=== PATIENT | female | born 1955 | race Caucasian/White ===

== ENCOUNTER → 2017-12-14 | Outpatient (CLI) | payer OTHER ==
[~2017-12-14] MED LIST: 24 HOUR ALLERG9.9 ML INH; ATEN25 PO; FAMO40 PO; IRON160 M1 PO; PROZAC20 MG PO; Prinivil10 MG PO; ZYRTEC10 M1
[2017-12-14 10:35] LABS: Creatinine Urine 85.5 mg/dL (27.00-270.00); Protein, Urine Quantitative 12.5 mg/dL (0.0-11.9)
[2017-12-14 10:38] LABS: Microalbumin, Urine Quant. 22.4 mg/L (0.000-20.000)
== END | disposition home or self-care (01) ==
LOC: LAB SHORT 08:30 → LAB 08:30 → LAB FUT 12-05 13:10
PROVIDERS: Internal Medicine Nephrology
DX: N18.4 Chronic kidney disease, stage 4 (severe) (principal); D75.1 Secondary polycythemia; N25.81 Secondary hyperparathyroidism of renal origin; E55.9 Vitamin D deficiency, unspecified; E78.00 Pure hypercholesterolemia, unspecified; R76.9 Abnormal immunological finding in serum, unspecified; R94.5 Abnormal results of liver function studies; R94.6 Abnormal results of thyroid function studies; G60.9 Hereditary and idiopathic neuropathy, unspecified; D51.8 Other vitamin B12 deficiency anemias; D52.8 Other folate deficiency anemias; D50.9 Iron deficiency anemia, unspecified
CPT/HCPCS: 81050; 82043; 82570; 84156

== ENCOUNTER → 2018-04-09 | Outpatient (CLI) | payer OTHER ==
[2018-04-09 15:33] LABS: Albumin/Globulin Ratio 1.1 (0.8-1.8); Bilirubin, Total 0.3 mg/dL (0.1-1.0); Bun/Creatinine Ratio 17.2 (12.0-20.0); Calcium, Blood 9.4 mg/dL (8.5-10.1); Creatinine, Blood 2.09 mg/dL (0.40-1.00); Globulin, Blood 3.5 g/dL (2.2-4.0); Potassium, Blood 5.2 mmol/L (3.5-5.5); Total Protein, Blood 7.5 g/dL (6.4-8.2)
== END | disposition home or self-care (01) ==
LOC: LAB SHORT 14:02 → LAB 14:02
PROVIDERS: Internal Medicine Hematology & Oncology
DX: D50.9 Iron deficiency anemia, unspecified (principal)
CPT/HCPCS: 80053

== ENCOUNTER 2018-05-20 07:57 | Day surgery (SDC) | payer OTHER ==
[~2018-05-20] VITALS: Ht 170.2 cm; Wt 99.8 kg
[~2018-05-20 07:57] MED LIST changes: -ATEN25 PO; -PROZAC20 MG PO; -Prinivil10 MG PO
--- NOTE | 2018-05-20 08:06 | NUR ---
History, Chart, Medications and Allergies reviewed before start of procedure. Patient confirms NPO status and agrees with scheduled EGD. Patient States Post-Procedure ride home has been arranged.
--- NOTE | 2018-05-20 08:19 | NUR ---
PT HR 130-160'S, DR GALDAMEZ AWARE AND EKG ORDERED.PT STATES NO CHEST PAIN AT THIS TIME BUT NOTICED LAST NIGHT SHE WAS GETTING A SORE SCRATCHY THROAT WITH CHEST DISCOMFORT. ALSO STATES SHE HAS HIGH BLOOD PRESSURE. TOOK BP MEDICATION YESTERDAY DIRECTED.
[2018-05-20 08:49] LABS: BASOPHILS ABSOLUTE AUTO 0.03 K/mm3 (0.00-0.23); BASOPHILS PERCENT AUTO 1 % (0-2); EOSINOPHILS ABSOLUTE AUTO 0.27 K/mm3 (0.00-0.68); EOSINOPHILS PERCENT AUTO 4 % (0-6); Hematocrit 39.8 % (33.0-51.0); Hemoglobin 12.8 g/dL (11.5-16.0); IMMATURE GRAN ABSOLUTE AUTO 0.01 K/mm3 (0.00-0.10); IMMATURE GRAN PERCENT AUTO 0 % (0-1); LYMPHOCYTES ABSOLUTE AUTO 1.57 K/mm3 (0.84-5.20); LYMPHOCYTES PERCENT AUTO 26 % (21-46); MONOCYTES ABSOLUTE AUTO 0.52 K/mm3 (0.16-1.47); MONOCYTES PERCENT AUTO 9 % (4-13); Mean Corpuscular HGB 29.3 pg (26.0-34.0); Mean Corpuscular HGB Conc 32.2 g/dL (31.5-36.5); Mean Corpuscular Volume 91 fL (80-100); NEUTROPHILS PERCENT AUTO 61 % (41-73); Platelet Count 177 K/mm3 (150-400); RDW Coefficient Variation 14.3 % (11.7-14.2); Red Blood Cell Count 4.37 M/mm3 (3.80-5.20)
--- NOTE | 2018-05-20 09:00 | NUR ---
PER DR GALDAMEZ, PT TO REPORT TO THE ER. PT ESCORTED TO ER VIA W/C. DR GALDAMEZ AWARE PT WAS ESCORTED TO ER WAITING ROOM.
[2018-05-20 09:13] LABS: Alanine Aminotransfer (ALT/SGP 22 U/L (12-78); Albumin, Blood 3.6 g/dL (3.4-5.0); Albumin/Globulin Ratio 0.9 (0.8-1.8); Alk Phos 82 U/L (50-136); Anion Gap 8 mmol/L (6-16); Aspartate Aminotrans (AST/SGOT 18 U/L (12-37); Bilirubin, Total 0.5 mg/dL (0.1-1.0); Blood Urea Nitrogen 34 mg/dL (8-24); Bun/Creatinine Ratio 20.4 (12.0-20.0); CO2, Blood 23 mmol/L (21-32); Calcium, Blood 9.1 mg/dL (8.5-10.1); Chloride, Blood 112 mmol/L (98-108); Creatinine, Blood 1.67 mg/dL (0.40-1.00); Glomerular Filtration Rate 33 (60-); Glucose, Blood 94 mg/dL (70-99); Potassium, Blood 4.6 mmol/L (3.5-5.5); Sodium, Blood 143 mmol/L (136-145); Total Protein, Blood 7.6 g/dL (6.4-8.2); Troponin I <0.015 ng/mL (0.000-0.040)
[2018-05-20] MEDS ORDERED: **incomplete med rec (12:09)
[2018-05-20] MEDS ORDERED: [UNRECOGNIZED DRUG - CODE] PO (12:51)
[2018-05-20] MEDS ORDERED: Omeprazole20 M1 PO (12:52)
[2018-05-20] MEDS ORDERED: PROZAC20 MG PO (14:12)
[2018-05-20] MEDS ORDERED: Prinivil10 MG PO (14:17)
[2018-05-20] MEDS ORDERED: ATEN25 PO (14:18)
[2018-05-20] MEDS ORDERED: CHOL10002 PO (14:20)
[2018-05-21] MEDS ORDERED: Lopressor 25 mg25 MG PO (16:34)
[2018-05-21] MEDS ORDERED: ZYRTEC10 M2 PO (16:35)
[2018-05-21] MEDS ORDERED: FERROUS SULFATE PO (16:37)
[2018-05-21] MEDS ORDERED: Flonase 0.05% N16 GM (16:40)
[2018-05-21] MEDS ORDERED: ADULT ASPIRIN81 MG PO (16:44)
== END 2018-05-20 12:00 | disposition home or self-care (01) ==
LOC: ORSCMMR 07:57 → ORD 09:00 → ORSCMMR 12:00
PROVIDERS: Internal Medicine Gastroenterology
DX: K25.0 Acute gastric ulcer with hemorrhage (principal); Z53.9 Procedure and treatment not carried out, unspecified reason
CPT/HCPCS: 80053; 83880; 84484; 85025; 85379; 93005; 93010; J7120

== ENCOUNTER 2018-05-20 08:49 | Observation (INO) | payer OTHER ==
[~2018-05-20] VITALS: Ht 170.2 cm; Wt 99.8 kg
[2018-05-20] MEDS ORDERED: **incomplete med rec (12:09)
[2018-05-20] MEDS ORDERED: [UNRECOGNIZED DRUG - CODE] PO (12:51)
[2018-05-20] MEDS ORDERED: Omeprazole20 M1 PO (12:52)
[2018-05-20] MEDS ORDERED: PROZAC20 MG PO (14:12)
[2018-05-20] MEDS ORDERED: Prinivil10 MG PO (14:17)
[2018-05-20] MEDS ORDERED: ATEN25 PO (14:18)
[2018-05-20] MEDS ORDERED: CHOL10002 PO (14:20)
[2018-05-20 16:41] LABS: CPK Creatine Kinase 68 U/L (26-193); Creatine Kinase MB 1.3 ng/mL (0.0-3.6); Creatine Kinase MB Index 1.9 (0.0-4.0); Free Thyroxine 0.76 ng/dL (0.70-1.60); Magnesium, Blood 1.9 mg/dL (1.6-2.4); Troponin I <0.015 ng/mL (0.000-0.040)
[2018-05-20 16:45] LABS: Phosphorus, Blood 2.6 mg/dL (2.5-4.9); Triiodothyronine, Free 2.19 pg/mL (2.18-3.98)
[2018-05-21 01:07] LABS: BASOPHILS ABSOLUTE AUTO 0.03 K/mm3 (0.00-0.23); BASOPHILS PERCENT AUTO 0 % (0-2); EOSINOPHILS ABSOLUTE AUTO 0.22 K/mm3 (0.00-0.68); EOSINOPHILS PERCENT AUTO 3 % (0-6); Hematocrit 37.1 % (33.0-51.0); Hemoglobin 11.8 g/dL (11.5-16.0); IMMATURE GRAN ABSOLUTE AUTO 0.03 K/mm3 (0.00-0.10); IMMATURE GRAN PERCENT AUTO 0 % (0-1); LYMPHOCYTES ABSOLUTE AUTO 1.79 K/mm3 (0.84-5.20); LYMPHOCYTES PERCENT AUTO 24 % (21-46); MONOCYTES ABSOLUTE AUTO 0.59 K/mm3 (0.16-1.47); MONOCYTES PERCENT AUTO 8 % (4-13); Mean Corpuscular HGB 29.7 pg (26.0-34.0); Mean Corpuscular HGB Conc 31.8 g/dL (31.5-36.5); Mean Platelet Volume 10.3 fL (9.1-12.4); NEUTROPHILS ABSOLUTE AUTO 4.78 K/mm3 (1.96-9.15); NEUTROPHILS PERCENT AUTO 64 % (41-73); Platelet Count 163 K/mm3 (150-400); RDW Coefficient Variation 14.5 % (11.7-14.2); RDW Standard Deviation 50.4 fL (35.1-46.3); Red Blood Cell Count 3.97 M/mm3 (3.80-5.20); White Blood Cell Count 7.44 K/mm3 (4.00-11.30)
[2018-05-21 01:13] LABS: Mean Corpuscular Volume 94 fL (80-100)
[2018-05-21 01:23] LABS: Bun/Creatinine Ratio 21.1 (12.0-20.0); Calcium, Blood 9.2 mg/dL (8.5-10.1); Creatinine, Blood 1.8 mg/dL (0.40-1.00); Potassium, Blood 4.4 mmol/L (3.5-5.5)
[2018-05-21 01:27] LABS: CPK Creatine Kinase 66 U/L (26-193); Creatine Kinase MB 1.4 ng/mL (0.0-3.6); Creatine Kinase MB Index 2.1 (0.0-4.0); Troponin I <0.015 ng/mL (0.000-0.040)
--- NOTE | 2018-05-21 05:19 | NUR ---
SHIFT SUMMARY PT ER ADMIT THIS SHIFT FOR AFIB RVR. PT HAS DONE WELL OVERNIGHT AND SLEPT FOR MOST OF THE SHIFT. SHE DENIES CHEST PAIN. MEDICATED X1 FOR HEADACHE WITH AFFECT. PT HAS BEEN INDEPENDENT AND AMBULATORY IN THE ROOM. AFIB UPON ADMISSION. PT CONVERTED TO SINUS RHYTHM RATE OF 57, AT 2330. THERE WAS A 3.7 SECOND PAUSE BEFORE SHE CONVERTED PER Mimvi. PT HAS REMAINED IN SINUS RHYHMN FOR THE REMAINDER OF SHIFT. WITH NO ACUTE CHANGES. IVF INFUSING ORDERED. WILL CONTINUE TO MONITOR AND REPORT TO ONCOMING RN.
--- NOTE | 2018-05-21 08:00 | NUR ---
PT PLEASANT COOP A/O DENIES PAIN. H/R REG, NO MURMER NOTED. PT CONVERTED LAST KVNG AT 1130 PM. PER TELE: NSR AT 73. LUNGS CLEAR, RESP EASY, UNLABORED. ON R.A. BT X4 LAST BM YEST. VOIDS PER BATHROOM. INDEPENDANT TO ROOM. BED IN LOW POSITION, CALL LITE IN REACH, CALLS APPROP
--- NOTE | 2018-05-21 09:09 | NUR ---
ECHOCARDIOGRAM COMPLETED
--- NOTE | 2018-05-21 11:30 | NUR ---
Advance Directive education conducted. I introduced myself and stated the purpose of my visit as I entered patient's room. Patient said that she was interested in the education and so I proceeded to tell her about the importance and the process of the advance directive. I explained, with the booklet in hand, about prupose of the different sections. Patient thanked me for the information and said that she would follow up with the advance directive when she felt better.
[2018-05-21] MEDS ORDERED: Lopressor 25 mg25 MG PO (16:34)
[2018-05-21] MEDS ORDERED: ZYRTEC10 M2 PO (16:35)
[2018-05-21] MEDS ORDERED: FERROUS SULFATE PO (16:37)
[2018-05-21] MEDS ORDERED: Flonase 0.05% N16 GM (16:40)
[2018-05-21] MEDS ORDERED: ADULT ASPIRIN81 MG PO (16:44)
== END 2018-05-21 17:14 | disposition home or self-care (01) ==
LOC: ER 08:49 → ERHOLD 08:50 → PCU 08:50 → ER 12:43 → ERHOLD 12:43 → PCU 19:55 → ERHOLD 19:55 → PCU 05-21 17:14
PROVIDERS: ADMIT Internal Medicine
DX: I48.91 Unspecified atrial fibrillation (principal); I12.9 Hypertensive chronic kidney disease with stage 1 through stage 4 chronic kidney disease, or unspecified chronic kidney disease; N18.4 Chronic kidney disease, stage 4 (severe); G47.33 Obstructive sleep apnea (adult) (pediatric); K21.9 Gastro-esophageal reflux disease without esophagitis; K22.10 Ulcer of esophagus without bleeding; D50.9 Iron deficiency anemia, unspecified; R73.03 Prediabetes; E78.00 Pure hypercholesterolemia, unspecified; Z79.899 Other long term (current) drug therapy; Z79.82 Long term (current) use of aspirin
CPT/HCPCS: 36415; 80048; 82550; 82553; 83735; 84100; 84439; 84443; 84481; 84484; 85025; 93306; 94762; 96361; 96374; 99285-25; J1650; J7030

== ENCOUNTER 2018-06-03 23:53 | Emergency (ER) | payer OTHER ==
[~2018-06-03] VITALS: Ht 170.2 cm; Wt 99.8 kg
[~2018-06-03 23:53] MED LIST changes: +**incomplete med rec; +ADULT ASPIRIN81 MG PO; +ATEN25 PO; +CHOL10002 PO; +FERROUS SULFATE PO; +Flonase 0.05% N16 GM; +Lopressor 25 mg25 MG PO; +Omeprazole20 M1 PO; +PROZAC20 MG PO; +Prinivil10 MG PO; +ZYRTEC10 M2 PO; +[UNRECOGNIZED DRUG - CODE] PO
[2018-06-04 00:32] LABS: BASOPHILS ABSOLUTE AUTO 0.03 K/mm3 (0.00-0.23); BASOPHILS PERCENT AUTO 1 % (0-2); EOSINOPHILS ABSOLUTE AUTO 0.32 K/mm3 (0.00-0.68); EOSINOPHILS PERCENT AUTO 5 % (0-6); Hematocrit 38.7 % (33.0-51.0); Hemoglobin 12.3 g/dL (11.5-16.0); IMMATURE GRAN ABSOLUTE AUTO 0.03 K/mm3 (0.00-0.10); IMMATURE GRAN PERCENT AUTO 1 % (0-1); LYMPHOCYTES ABSOLUTE AUTO 1.91 K/mm3 (0.84-5.20); LYMPHOCYTES PERCENT AUTO 32 % (21-46); MONOCYTES ABSOLUTE AUTO 0.44 K/mm3 (0.16-1.47); MONOCYTES PERCENT AUTO 7 % (4-13); Mean Corpuscular HGB 29.7 pg (26.0-34.0); Mean Corpuscular HGB Conc 31.8 g/dL (31.5-36.5); Mean Corpuscular Volume 94 fL (80-100); Mean Platelet Volume 10.3 fL (9.1-12.4); NEUTROPHILS ABSOLUTE AUTO 3.29 K/mm3 (1.96-9.15); NEUTROPHILS PERCENT AUTO 55 % (41-73); Platelet Count 220 K/mm3 (150-400); RDW Coefficient Variation 14.2 % (11.7-14.2); RDW Standard Deviation 48.2 fL (35.1-46.3); Red Blood Cell Count 4.14 M/mm3 (3.80-5.20); White Blood Cell Count 6.02 K/mm3 (4.00-11.30)
[2018-06-04 01:02] LABS: Alanine Aminotransfer (ALT/SGP 24 U/L (12-78); Albumin, Blood 3.7 g/dL (3.4-5.0); Albumin/Globulin Ratio 0.9 (0.8-1.8); Alk Phos 73 U/L (50-136); Anion Gap 6 mmol/L (6-16); Aspartate Aminotrans (AST/SGOT 12 U/L (12-37); Bilirubin, Total 0.3 mg/dL (0.1-1.0); Blood Urea Nitrogen 34 mg/dL (8-24); CO2, Blood 25 mmol/L (21-32); Calcium, Blood 9.4 mg/dL (8.5-10.1); Chloride, Blood 111 mmol/L (98-108); Creatinine, Blood 1.62 mg/dL (0.40-1.00); Globulin, Blood 3.9 g/dL (2.2-4.0); Glomerular Filtration Rate 34 (60-); Glucose, Blood 91 mg/dL (70-99); Potassium, Blood 4.5 mmol/L (3.5-5.5); Sodium, Blood 142 mmol/L (136-145); Total Protein, Blood 7.6 g/dL (6.4-8.2); Troponin I <0.015 ng/mL (0.000-0.040)
== END 2018-06-04 03:43 | disposition home or self-care (01) ==
LOC: ER 23:53
PROVIDERS: Emergency Medicine
DX: I48.91 Unspecified atrial fibrillation (principal); Z79.899 Other long term (current) drug therapy; Z79.82 Long term (current) use of aspirin; I10 Essential (primary) hypertension; E03.9 Hypothyroidism, unspecified
CPT/HCPCS: 36415; 71046; 80053; 83735; 83880; 84484; 85025; 93005; 93010; 96374; 99285-25; J7030

== ENCOUNTER → 2018-08-17 | Outpatient (CLI) | payer OTHER | END | disposition home or self-care (01) | LOC: LAB EV 19:18 → LAB SHORT 19:18 | DX: N39.0 Urinary tract infection, site not specified (principal) | CPT/HCPCS: 87077; 87086; 87186 ==

== ENCOUNTER → 2018-08-22 | Outpatient (CLI) | payer OTHER ==
[~2018-08-22] MED LIST changes: +CALC.25 PO; +CEFU500T30 PO; -CHOL10002 PO; +FERRO-TIME325 MG PO; -FERROUS SULFATE PO; -Lopressor 25 mg25 MG PO; +Toprol Xl25 MG PO; +VITAMIN D32000 UNI1 PO; +WARF5 PO
== END | disposition home or self-care (01) ==
LOC: LAB SHORT 12:27 → LAB EV 12:27
DX: N39.0 Urinary tract infection, site not specified (principal)
CPT/HCPCS: 87086

== ENCOUNTER 2018-09-01 08:20 | Day surgery (SDC) | payer OTHER ==
[~2018-09-01] VITALS: Ht 170.2 cm; Wt 99.7 kg
[~2018-09-01 08:20] MED LIST changes: -CALC.25 PO; -CEFU500T30 PO; -WARF5 PO
--- NOTE | 2018-09-01 09:10 | NUR ---
Ambulatory in Day Surgery. History, Chart, Medications and Allergies reviewed before start of procedure. Lungs clear T/O to Auscultation. Patient confirms NPO status and agrees with scheduled surgery. Pre-Op teaching done. Pt verbalizes understanding. Patient States Post-Procedure ride home has been arranged.
--- NOTE | 2018-09-01 09:23 | NUR ---
09/01/18 0923 Eugenia Rhodes History, Chart, Medications and Allergies reviewed before start of procedure. PATIENT CONFIRMS NPO STATUS AND AGREES WITH SCHEDULED PROCEDURE. MONITOR INTACT WITH CONTINUOUS PULSE OXIMETRY AND INTERMITTENT BP. O2 VIA N/C INTACT THROUGHOUT SEDATION/PROCEDURE. 3-LEAD EKG REVIEWED WITH PHYSICIAN PRIOR TO START OF PROCEDURE. WILL USER MODERATE SDATIOSNDO TO SLEEP APNEA.
--- NOTE | 2018-09-01 09:59 | NUR ---
INTO STEP S/P EGD. PT A&OX3. DENIES PAIN OR NAUSEA. HR 50'S.SATS>90% ON RA. LANRE INITIATED.
--- NOTE | 2018-09-01 10:26 | NUR ---
DISCHARGED WITH ALL BELONGINGS AND DISCHARGE INSTRUCITONS ESCORTED OUT IN WC BY RN
== END 2018-09-01 22:53 | disposition home or self-care (01) ==
LOC: ORSCMMR 08:20 → ORD 09:30 → ORSCMMR 22:53
PROVIDERS: Internal Medicine Gastroenterology
PROC: 0DB48ZX Excision of Esophagogastric Junction, Via Natural or Artificial Opening Endoscopic, Diagnostic (ICD-10-PCS; principal; 2018-09-01 09:30)
DX: Z87.11 Personal history of peptic ulcer disease (principal); I48.91 Unspecified atrial fibrillation; D64.9 Anemia, unspecified; I10 Essential (primary) hypertension; E78.00 Pure hypercholesterolemia, unspecified; R73.03 Prediabetes; K21.9 Gastro-esophageal reflux disease without esophagitis; G47.33 Obstructive sleep apnea (adult) (pediatric); E66.01 Morbid (severe) obesity due to excess calories; Z68.34 Body mass index [BMI] 34.0-34.9, adult; Z79.899 Other long term (current) drug therapy
CPT/HCPCS: 88305; J2250; J3010; J7120

== ENCOUNTER 2018-10-13 12:49 | Observation (INO) | payer OTHER ==
[~2018-10-13] VITALS: Ht 170.2 cm; Wt 99.1 kg
[2018-10-13] MEDS ORDERED: WARF5 PO (13:32)
[2018-10-13 13:44] LABS: BASOPHILS ABSOLUTE AUTO 0.03 K/mm3 (0.00-0.23); BASOPHILS PERCENT AUTO 1 % (0-2); EOSINOPHILS ABSOLUTE AUTO 0.17 K/mm3 (0.00-0.68); EOSINOPHILS PERCENT AUTO 3 % (0-6); Hematocrit 43.3 % (33.0-51.0); IMMATURE GRAN ABSOLUTE AUTO 0.02 K/mm3 (0.00-0.10); IMMATURE GRAN PERCENT AUTO 0 % (0-1); LYMPHOCYTES ABSOLUTE AUTO 1.49 K/mm3 (0.84-5.20); LYMPHOCYTES PERCENT AUTO 23 % (21-46); MONOCYTES PERCENT AUTO 8 % (4-13); Mean Corpuscular HGB 29.7 pg (26.0-34.0); Mean Corpuscular HGB Conc 32.3 g/dL (31.5-36.5); Mean Corpuscular Volume 92 fL (80-100); Mean Platelet Volume 10.4 fL (9.1-12.4); NEUTROPHILS ABSOLUTE AUTO 4.22 K/mm3 (1.96-9.15); NEUTROPHILS PERCENT AUTO 66 % (41-73); Platelet Count 230 K/mm3 (150-400); RDW Coefficient Variation 13.3 % (11.7-14.2); RDW Standard Deviation 44.6 fL (35.1-46.3); Red Blood Cell Count 4.72 M/mm3 (3.80-5.20); White Blood Cell Count 6.43 K/mm3 (4.00-11.30)
[2018-10-13 13:58] LABS: International Normalized Ratio 2.21; Prothrombin Time Results 21.8 Sec (9.7-11.5)
[2018-10-13 14:02] LABS: Albumin, Blood 3.8 g/dL (3.4-5.0); Albumin/Globulin Ratio 0.9 (0.8-1.8); Bilirubin, Total 0.4 mg/dL (0.1-1.0); Bun/Creatinine Ratio 18.7 (12.0-20.0); Calcium, Blood 9.7 mg/dL (8.5-10.1); Creatinine, Blood 2.46 mg/dL (0.40-1.00); Globulin, Blood 4.1 g/dL (2.2-4.0); Potassium, Blood 4.8 mmol/L (3.5-5.5); Total Protein, Blood 7.9 g/dL (6.4-8.2); Troponin I 0.055 ng/mL (0.000-0.040)
[2018-10-13] MEDS ORDERED: CALC.25 PO (14:56)
[2018-10-13 16:15] LABS: Source, Urine Clean Catch
[2018-10-13 16:22] LABS: Bilirubin, Urine Neg (Neg); Blood, Urine 2+ (Neg); Glucose Qualitative, Urine Neg (Neg); Ketones, Urine Neg (Neg); Leukocyte Esterase, Urine 3+ (Neg); Nitrite, Urine Neg (Neg); Protein, Urine 3+ (Neg); Urobilinogen, Urine NORM (Normal)
[2018-10-13 16:29] LABS: Appearance, Urine Hazy (Clear); Color, Urine Yellow (P-Yellow); White Blood Cells, Urine TNTC /hpf (0-5)
[2018-10-13 16:30] LABS: Bacteria Few /hpf; Squamous Epithelial Cells Few /hpf (Few)
[2018-10-14 03:59] LABS: International Normalized Ratio 2.54; Prothrombin Time Results 24.7 Sec (9.7-11.5)
[2018-10-14 04:03] LABS: Bun/Creatinine Ratio 20.5 (12.0-20.0); Calcium, Blood 8.7 mg/dL (8.5-10.1); Creatinine, Blood 2.24 mg/dL (0.40-1.00); Potassium, Blood 4.8 mmol/L (3.5-5.5)
[2018-10-14] MEDS ORDERED: CEFU500T30 PO (14:40)
== END 2018-10-14 17:20 | disposition home or self-care (01) ==
LOC: ER 12:49 → PCU 12:50
PROVIDERS: Emergency Medicine; Physician Assistant; ADMIT Hospitalist
DX: I48.91 Unspecified atrial fibrillation (principal); N17.9 Acute kidney failure, unspecified; I95.9 Hypotension, unspecified; N39.0 Urinary tract infection, site not specified; I12.9 Hypertensive chronic kidney disease with stage 1 through stage 4 chronic kidney disease, or unspecified chronic kidney disease; N18.3 Chronic kidney disease, stage 3 (moderate); D50.9 Iron deficiency anemia, unspecified; F32.9 Major depressive disorder, single episode, unspecified; E78.5 Hyperlipidemia, unspecified; G47.30 Sleep apnea, unspecified; Z79.01 Long term (current) use of anticoagulants; Z79.899 Other long term (current) drug therapy; Z99.89 Dependence on other enabling machines and devices
CPT/HCPCS: 36415; 71045; 80048; 80053; 81001; 84484; 85025; 85610; 87086; 93005; 93010; 96361; 96365; 96366; 96374; 96375; 99285-25; G0378; J0696; J7030

== ENCOUNTER → 2018-10-23 | Outpatient (CLI) | payer OTHER ==
[~2018-10-23] MED LIST changes: +CALC.25 PO; +CEFU500T30 PO; +WARF5 PO
== END | disposition home or self-care (01) ==
LOC: LAB EV 14:56 → LAB SHORT 14:56
DX: N39.0 Urinary tract infection, site not specified (principal)
CPT/HCPCS: 87086

== ENCOUNTER → 2019-01-10 | Outpatient (CLI) | payer OTHER | END | disposition home or self-care (01) | LOC: OLS 18:24 → LAB SHORT 18:24 → LAB FUT 01-09 14:40 | DX: N18.3 Chronic kidney disease, stage 3 (moderate) (principal); D63.1 Anemia in chronic kidney disease; N25.81 Secondary hyperparathyroidism of renal origin; E55.9 Vitamin D deficiency, unspecified; E78.00 Pure hypercholesterolemia, unspecified; R76.9 Abnormal immunological finding in serum, unspecified; R94.5 Abnormal results of liver function studies; R94.6 Abnormal results of thyroid function studies | CPT/HCPCS: 86335 ==

== ENCOUNTER 2022-07-31 06:56 | Day surgery (SDC) | payer OTHER ==
[~2022-07-31] VITALS: Ht 170.2 cm; Wt 106.0 kg
[2022-07-31] VITALS (9 sets, daily range): BP systolic 100–149; BP diastolic 59–101
[~2022-07-31 06:56] MED LIST changes: +ATOR20 PO; +Aspir 8181 MG PO; +B-12500 MC2 PO; +FURO20 PO; +LEVSOD25 PO; +LISI20 PO; +NITR.4SL SL; +OMEP20ER PO; -Prinivil10 MG PO; +VERA240ER PO; +[UNRECOGNIZED DRUG - CODE] PO
--- NOTE | 2022-07-31 10:14 | NUR ---
PT TO AND FROM BATHROOM PER SELF. R RADIAL SITE STABLE.
--- NOTE | 2022-07-31 10:44 | NUR ---
ASSUMED CARE FROM COREY VERNON. IN PROCESS OF REMOVING AIR FROM THE TR BAND. SLIGHT OOZING OF THE RIGHT RADIAL NOTED. WILL CAUTIOUSLY WATCH THE TR BAND, NO HEMATOMA NOTED.
--- NOTE | 2022-07-31 11:08 | NUR ---
1100 ALL AIR OUT OF THE TR BAND AND NO BLEEDING NOTED. NO HEMATOMA NOTED.
--- NOTE | 2022-07-31 11:09 | NUR ---
1110 PATIENT UP AND OFF MONITOR. DRESSING SELF WITH HUSBANDS' ASSIST. PIV REMOVED AND CATH TIP INTACT. PRESSURE DRESSING APPLIED. SAULO NICOLE HAD ALREADY GONE OVER ALL DISCHARGE INSTRUCTIONS WITH THE PATIENT AND THE PATIENT DENIES ANY FURTHER QUESTIONS.
== END 2022-07-31 11:00 | disposition home or self-care (01) ==
LOC: MHTC 06:56
DX: I25.119 Atherosclerotic heart disease of native coronary artery with unspecified angina pectoris (principal); I25.2 Old myocardial infarction; I12.9 Hypertensive chronic kidney disease with stage 1 through stage 4 chronic kidney disease, or unspecified chronic kidney disease; N18.4 Chronic kidney disease, stage 4 (severe); I48.0 Paroxysmal atrial fibrillation; G47.30 Sleep apnea, unspecified; D50.9 Iron deficiency anemia, unspecified; E03.9 Hypothyroidism, unspecified; K21.9 Gastro-esophageal reflux disease without esophagitis; F32.A Depression, unspecified; Z79.01 Long term (current) use of anticoagulants; Z79.82 Long term (current) use of aspirin
CPT/HCPCS: 76937; 93458; 99152; 99153; C1769; C1887; C1894; J1644; J2250; J3010; J7030; J7050; Q9967

== ENCOUNTER → 2022-09-19 | Outpatient (CLI) | payer OTHER ==
[2022-09-19 15:51] LABS: International Normalized Ratio 2.23; Prothrombin Time Results 22.4 Sec (9.7-11.5)
== END | disposition home or self-care (01) ==
LOC: LAB SHORT 13:07 → LAB 13:07
PROVIDERS: Registered Nurse
DX: I48.19 Other persistent atrial fibrillation (principal)
CPT/HCPCS: 36415; 85610

== ENCOUNTER 2023-11-11 08:13 | Day surgery (SDC) | payer OTHER ==
[~2023-11-11] VITALS: Ht 170.2 cm; Wt 101.3 kg
[~2023-11-11 08:13] MED LIST changes: +Amiodarone HCl200 MG PO; +Balanced Salt Epinephrine Irrigation Solution 500 mL IR SCH; +Lidocaine HCl/Pf 1% 5 ML VIAL XX SCH; +Moxifloxacin HCL 0.5 MG/0.1 ML 0.4MLSYR LEFTEYE SCH; +NS 500 ML IV ONE; +OXYC5 PO; +PHENYLEPHRINE\\TROPICAMIDE\\TETRACAINE OPHTHALMIC DILATING SOLN LEFTEYE PRN; +Povidone-Iodine 450 DROP/30 ML Solution LEFTEYE SCH; +TRAZ50 PO; +Triamcinolone Inj Susp 40 MG / ML 1ML Vial INJ SCH; +Triamcinolone Inj Susp 40 MG / ML 1ML Vial ONE
[2023-11-11] MEDS ORDERED: Midazolam HCl 1MG / ML 2ML Vial ONE (08:22)
[2023-11-11] MEDS ORDERED: FentaNYL Citrate 50 MCG/ML 2 ML Injection ONE (08:22)
--- NOTE | 2023-11-11 08:50 | NUR ---
11/11/[address] RAMIREZ AWARE OF BP AND OK TO PROCEED
[2023-11-11] MEDS ORDERED: NS 500 ML IV ONE (08:51)
[2023-11-11] MEDS ORDERED: HydrALAZINE HCl 20 MG / ML 1ML Vial ONE (09:26)
[2023-11-11 09:44] VITALS: BP 195/88
== END 2023-11-11 10:01 | disposition home or self-care (01) ==
LOC: ORSCSDS 08:13
PROVIDERS: Ophthalmology
PROC: 08RK3JZ Replacement of Left Lens with Synthetic Substitute, Percutaneous Approach (ICD-10-PCS; principal; 2023-11-11 09:30)
DX: H25.813 Combined forms of age-related cataract, bilateral (principal); I12.9 Hypertensive chronic kidney disease with stage 1 through stage 4 chronic kidney disease, or unspecified chronic kidney disease; N18.4 Chronic kidney disease, stage 4 (severe); I25.10 Atherosclerotic heart disease of native coronary artery without angina pectoris; G47.33 Obstructive sleep apnea (adult) (pediatric); H35.30 Unspecified macular degeneration; F32.A Depression, unspecified; F41.9 Anxiety disorder, unspecified; I48.91 Unspecified atrial fibrillation; Z79.82 Long term (current) use of aspirin; Z79.899 Other long term (current) drug therapy
CPT/HCPCS: J0360; J2250; J3010; J3301; J7040; V2632

== ENCOUNTER 2023-11-19 07:39 | Day surgery (SDC) | payer OTHER ==
[~2023-11-19] VITALS: Ht 170.2 cm; Wt 101.0 kg
[~2023-11-19 07:39] MED LIST changes: +Lidocaine HCl/Pf 1% 5 ML VIAL ONE; -Moxifloxacin HCL 0.5 MG/0.1 ML 0.4MLSYR LEFTEYE SCH; +Moxifloxacin HCL 0.5 MG/0.1 ML 0.4MLSYR RIGHTEYE SCH; -PHENYLEPHRINE\\TROPICAMIDE\\TETRACAINE OPHTHALMIC DILATING SOLN LEFTEYE PRN; +PHENYLEPHRINE\\TROPICAMIDE\\TETRACAINE OPHTHALMIC DILATING SOLN RIGHTEYE PRN; -Povidone-Iodine 450 DROP/30 ML Solution LEFTEYE SCH; +Povidone-Iodine 450 DROP/30 ML Solution RIGHTEYE SCH
[2023-11-19] MEDS ORDERED: Lactated Ringer's 1,000 ML IV ONE (08:05)
--- NOTE | 2023-11-19 08:19 | NUR ---
11/19/23 0819 ISAIAS SMITH TETRECAINE: 816 PLEDGIT 81
[2023-11-19] MEDS ORDERED: Midazolam HCl 1MG / ML 2ML Vial ONE (08:24)
[2023-11-19 09:24] VITALS: BP 170/79
== END 2023-11-19 09:23 | disposition home or self-care (01) ==
LOC: ORSCSDS 07:39
PROVIDERS: Ophthalmology
PROC: 08RJ3JZ Replacement of Right Lens with Synthetic Substitute, Percutaneous Approach (ICD-10-PCS; principal; 2023-11-19 09:00)
DX: H25.811 Combined forms of age-related cataract, right eye (principal); Z96.1 Presence of intraocular lens; N18.9 Chronic kidney disease, unspecified; Z95.1 Presence of aortocoronary bypass graft; I25.10 Atherosclerotic heart disease of native coronary artery without angina pectoris; Z79.82 Long term (current) use of aspirin; Z79.899 Other long term (current) drug therapy
CPT/HCPCS: J2001; J2250; J3301; J7040; J7120; V2632

== ENCOUNTER 2024-02-22 08:10 | Day surgery (SDC) | payer OTHER ==
[~2024-02-22] VITALS: Ht 167.6 cm; Wt 105.1 kg
[~2024-02-22 08:10] MED LIST changes: -Balanced Salt Epinephrine Irrigation Solution 500 mL IR SCH; -Lidocaine HCl/Pf 1% 5 ML VIAL ONE; -Lidocaine HCl/Pf 1% 5 ML VIAL XX SCH; -Moxifloxacin HCL 0.5 MG/0.1 ML 0.4MLSYR RIGHTEYE SCH; -NS 500 ML IV ONE; +NS 500 ML IV SCH; -PHENYLEPHRINE\\TROPICAMIDE\\TETRACAINE OPHTHALMIC DILATING SOLN RIGHTEYE PRN; -Povidone-Iodine 450 DROP/30 ML Solution RIGHTEYE SCH; -Triamcinolone Inj Susp 40 MG / ML 1ML Vial INJ SCH; -Triamcinolone Inj Susp 40 MG / ML 1ML Vial ONE
[2024-02-22 08:54] VITALS: BP 172/87
[2024-02-22] MEDS ORDERED: propofoL 20 ML IV ONE (09:42)
--- NOTE | 2024-02-22 09:52 | NUR ---
02/22/24 0952 Zia Hensley MONITOR INTACT WITH CONTINUOUS PULSE OXIMETRY, CONTINUOUS END TITAL CO2, AND INTERMITTENT BLOOD PRESSURE.AND EKG SEE ANESTHESIA RECORD
[2024-02-22] MEDS ORDERED: propofoL 40 ML IV ONE (10:05)
[2024-02-22 10:45] VITALS: BP 162/83
[2024-02-22 11:00] VITALS: BP 166/91
--- NOTE | 2024-02-22 11:16 | NUR ---
1105 Patient up to Ambulate independently. Gait steady AND CONSISTENT WITH PT BASELINE. VSS AND CONSISTENT WITH PT BASELINE. PT HAS NO COMPLAINTS AND VERBALIZES READINESS TO GO HOME. Discharge instructions reviewed with patient. Patient verbalizes understanding. Copy given to patient to take home. Patient States Post-Procedure ride home has been arranged. Discharged via wheelchair to private car for ride home. PT BELONGINGS RETURNED TO PT.
== END 2024-02-22 11:16 | disposition home or self-care (01) ==
LOC: ORSCMMR 08:10 → ORD 09:30 → ORSCMMR 11:16
PROVIDERS: Internal Medicine Gastroenterology
PROC: 0DJD8ZZ Inspection of Lower Intestinal Tract, Via Natural or Artificial Opening Endoscopic (ICD-10-PCS; principal; 2024-02-22 09:30)
DX: Z12.11 Encounter for screening for malignant neoplasm of colon (principal); Z86.0101 Personal history of adenomatous and serrated colon polyps; I48.91 Unspecified atrial fibrillation; Z79.01 Long term (current) use of anticoagulants; I10 Essential (primary) hypertension; E78.00 Pure hypercholesterolemia, unspecified; G47.33 Obstructive sleep apnea (adult) (pediatric); Z79.899 Other long term (current) drug therapy; E03.9 Hypothyroidism, unspecified; F32.A Depression, unspecified; K21.9 Gastro-esophageal reflux disease without esophagitis; Z96.643 Presence of artificial hip joint, bilateral; Z96.651 Presence of right artificial knee joint
CPT/HCPCS: J2704; J7040

== ENCOUNTER 2024-06-30 10:52 | Observation (INO) | payer OTHER ==
[~2024-06-30] VITALS: Ht 170.2 cm; Wt 112.2 kg
[~2024-06-30 10:52] MED LIST changes: -NS 500 ML IV SCH
[2024-06-30 11:24] LABS: BASOPHILS ABSOLUTE AUTO 0.03 K/mm3 (0.00-0.23); BASOPHILS PERCENT AUTO 1 % (0-2); EOSINOPHILS ABSOLUTE AUTO 0.32 K/mm3 (0.00-0.68); EOSINOPHILS PERCENT AUTO 6 % (0-6); Hematocrit 37.3 % (33.0-51.0); Hemoglobin 12.3 g/dL (11.5-16.0); IMMATURE GRAN ABSOLUTE AUTO 0.01 K/mm3 (0.00-0.10); IMMATURE GRAN PERCENT AUTO 0 % (0-1); LYMPHOCYTES ABSOLUTE AUTO 1.43 K/mm3 (0.84-5.20); LYMPHOCYTES PERCENT AUTO 28 % (21-46); MONOCYTES ABSOLUTE AUTO 0.34 K/mm3 (0.16-1.47); MONOCYTES PERCENT AUTO 7 % (4-13); Mean Corpuscular HGB 30.7 pg (26.0-34.0); Mean Corpuscular Volume 93 fL (80-100); Mean Platelet Volume 9.8 fL (9.1-12.4); NEUTROPHILS ABSOLUTE AUTO 3.06 K/mm3 (1.96-9.15); NEUTROPHILS PERCENT AUTO 59 % (41-73); Platelet Count 167 K/mm3 (150-400); RDW Standard Deviation 47.5 fL (35.1-46.3); Red Blood Cell Count 4.01 M/mm3 (3.80-5.20); White Blood Cell Count 5.19 K/mm3 (4.00-11.30)
[2024-06-30 11:34] LABS: International Normalized Ratio 1.62; Prothrombin Time Results 16.7 Sec (9.7-11.5)
[2024-06-30 11:45] LABS: Albumin, Blood 3.5 g/dL (3.4-5.0); Albumin/Globulin Ratio 0.9 (0.8-1.8); Bilirubin, Total 0.4 mg/dL (0.1-1.0); Bun/Creatinine Ratio 14.4 (12.0-20.0); Calcium, Blood 9.4 mg/dL (8.5-10.1); Creatinine, Blood 1.95 mg/dL (0.40-1.00); Globulin, Blood 3.9 g/dL (2.2-4.0); Potassium, Blood 4.3 mmol/L (3.5-5.5); Total Protein, Blood 7.4 g/dL (6.4-8.2)
[2024-06-30] MEDS ORDERED: NS 250 ML IV SCH (11:50)
[2024-06-30] MEDS ORDERED: Metoprolol Tartrate 1 MG/ML 5 ML VIAL IV PRN (12:40)
[2024-06-30] MEDS ORDERED: Metoprolol Tartrate 25 MG Tab PO ONE (12:40)
[2024-06-30] MEDS ORDERED: dilTIAZem HCL 125 MG in Dextrose 5% 100 ML IV SCH (14:00)
[2024-06-30 17:35] VITALS: BP 107/66
[2024-06-30] MEDS ORDERED: CYCL10 PO (17:42)
[2024-06-30] MEDS ORDERED: TOCO1000 PO (17:49)
[2024-06-30] MEDS ORDERED: Vitamin and Mi1 EACH PO (17:50)
[2024-06-30] MEDS ORDERED: Warfarin Sodium 7.5 MG Tab PO SCH (18:00)
--- NOTE | 2024-06-30 18:34 | NUR ---
PCU Admit / End of Shift Pt brought to PCU-04 by heather from ER @ approx 1730. Pt A&O x4. Able to stand & ambulate w/ cane. VSS. Spo2 > 92% on RA. Pt reports CPAP use at home while sleeping. Pt reports s/o may possibly be able to bring home CPAP for use tonight. Monitor showing Afib, HR 70s-110s. Cardizem gtt infusing @ 15 mg/hr.
[2024-06-30] MEDS ORDERED: Furosemide 20 MG Tab PO PRN (18:50)
[2024-06-30] MEDS ORDERED: Nitroglycerin 0.4 MG SUBL SL PRN (18:55)
[2024-06-30] MEDS ORDERED: Cyclobenzaprine HCl 10 MG Tab PO PRN (19:00)
[2024-06-30 19:30] VITALS: BP 117/81
[2024-06-30] MEDS ORDERED: Lisinopril 20 MG Tab PO SCH (21:00)
[2024-06-30] MEDS ORDERED: TraZODone HCl 50 MG Tab PO SCH (21:00)
[2024-06-30 23:49] VITALS: BP 125/96
[2024-07-01 04:59] LABS: BASOPHILS ABSOLUTE AUTO 0.04 K/mm3 (0.00-0.23); BASOPHILS PERCENT AUTO 1 % (0-2); EOSINOPHILS ABSOLUTE AUTO 0.41 K/mm3 (0.00-0.68); EOSINOPHILS PERCENT AUTO 8 % (0-6); Hematocrit 36.1 % (33.0-51.0); Hemoglobin 11.7 g/dL (11.5-16.0); IMMATURE GRAN ABSOLUTE AUTO 0.02 K/mm3 (0.00-0.10); IMMATURE GRAN PERCENT AUTO 0 % (0-1); LYMPHOCYTES ABSOLUTE AUTO 1.24 K/mm3 (0.84-5.20); LYMPHOCYTES PERCENT AUTO 23 % (21-46); MONOCYTES ABSOLUTE AUTO 0.54 K/mm3 (0.16-1.47); MONOCYTES PERCENT AUTO 10 % (4-13); Mean Corpuscular HGB 30.5 pg (26.0-34.0); Mean Corpuscular HGB Conc 32.4 g/dL (31.5-36.5); Mean Corpuscular Volume 94 fL (80-100); Mean Platelet Volume 10.3 fL (9.1-12.4); NEUTROPHILS ABSOLUTE AUTO 3.16 K/mm3 (1.96-9.15); NEUTROPHILS PERCENT AUTO 58 % (41-73); Platelet Count 173 K/mm3 (150-400); RDW Coefficient Variation 14.1 % (11.7-14.2); RDW Standard Deviation 48.1 fL (35.1-46.3); Red Blood Cell Count 3.84 M/mm3 (3.80-5.20); White Blood Cell Count 5.41 K/mm3 (4.00-11.30)
[2024-07-01 05:11] LABS: International Normalized Ratio 1.61; Prothrombin Time Results 16.6 Sec (9.7-11.5)
[2024-07-01 05:30] LABS: Bun/Creatinine Ratio 19.1 (12.0-20.0); Calcium, Blood 9.6 mg/dL (8.5-10.1); Creatinine, Blood 1.73 mg/dL (0.40-1.00); Potassium, Blood 4.4 mmol/L (3.5-5.5)
[2024-07-01 05:35] VITALS: BP 125/96
--- NOTE | 2024-07-01 05:38 | NUR ---
SHIFT SUMMARY: PT IS PLESANT AND COOPERATIVE WITH CARES ABLE TO MAKE HER NEEDS KNOWN, IN AFIB RATE CONTROLLED WITH DILT DRIP @ 10, HR 80-99, ALL OTHER VSS, CONT OF BAB USES BATHROOM, ABLE TO WALK 1 PERSON FOR CORD SUPPORT, HOME CPAP AT BEDSIDE, TAKES HER MEDS WHOLE WITH THIN FLUIDS AND CAN USE CALL LIGHT APPROPRIATELY
[2024-07-01] MEDS ORDERED: Omeprazole 20 MG CapCR PO SCH (06:00)
[2024-07-01] MEDS ORDERED: Levothyroxine Sodium 0.025 MG Tab PO SCH (06:00)
[2024-07-01 07:51] VITALS: BP 129/83
[2024-07-01] MEDS ORDERED: Cholecalciferol 1000 Unit Tablet (=25MCG) PO SCH (09:00)
[2024-07-01] MEDS ORDERED: Cyanocobalamin 500 MCG Tab PO SCH (09:00)
[2024-07-01] MEDS ORDERED: FLUoxetine HCL 20 MG CAP PO SCH (09:00)
[2024-07-01] MEDS ORDERED: Multivitamins/Minerals TAB PO SCH (09:00)
[2024-07-01] MEDS ORDERED: Aspirin 81 MG TabEC PO SCH (09:00)
[2024-07-01] MEDS ORDERED: Atorvastatin 10 MG Tab PO SCH (09:00)
[2024-07-01] MEDS ORDERED: Misc. Capsule PO SCH (09:00)
[2024-07-01] MEDS ORDERED: Metoprolol Tartrate 25 MG Tab PO SCH (10:00)
[2024-07-01 10:13] VITALS: BP 119/69
[2024-07-01 11:24] VITALS: BP 115/73
[2024-07-01 11:25] VITALS: BP 115/73
--- NOTE | 2024-07-01 11:31 | NUR ---
Pt. is awake in bed and welcomed my visit. Pt. is pleasant, but is unsettled about being in the hospital over the holiday weekend. Listened with empathy and a calming presence. Pt. displayed evidence of being hopefal and aware. Prayed with the Pt. Pt. verbalized gratitude for the spiritual care visit.
[2024-07-01] MEDS ORDERED: METO25 PO (15:22)
--- NOTE | 2024-07-01 15:58 | NUR ---
[facility] Home Pt A&O x4. VSS. Spo2 > 92% on RA. Cardizem gtt titrated off @ approx 1300 w/ pt tolerating well. Monitor showing afib, HR 70s-110s. w/ order for discharge home. Discharge instructions reviewed w/ pt & sent home w/ pt. PIV removed. Pt taken out in wheelchair w/ belongings at approx 1600.
[2024-07-01] MEDS ORDERED: Warfarin Sodium 7.5 MG Tab PO SCH (18:00)
[2024-07-02] MEDS ORDERED: Ferrous Sulfate 325 MG Tab PO SCH (09:00)
[2024-07-02] MEDS ORDERED: Calcitriol 0.25 MCG Cap PO SCH (09:00)
== END 2024-07-01 16:00 | disposition home or self-care (01) ==
LOC: ER 10:52 → PCU 10:53 → ER 10:53 → ERHOLD 10:53 → PCU 14:57 → ERHOLD 17:28 → PCU 17:28
PROVIDERS: Physician Assistant; ADMIT Internal Medicine
DX: I48.0 Paroxysmal atrial fibrillation (principal); I25.10 Atherosclerotic heart disease of native coronary artery without angina pectoris; E78.00 Pure hypercholesterolemia, unspecified; G47.33 Obstructive sleep apnea (adult) (pediatric); E03.9 Hypothyroidism, unspecified; I12.9 Hypertensive chronic kidney disease with stage 1 through stage 4 chronic kidney disease, or unspecified chronic kidney disease; N18.4 Chronic kidney disease, stage 4 (severe); K21.9 Gastro-esophageal reflux disease without esophagitis; F32.A Depression, unspecified; Z79.01 Long term (current) use of anticoagulants; Z95.1 Presence of aortocoronary bypass graft
CPT/HCPCS: 36415; 71046; 80048; 80053; 83690; 83735; 84484; 85025; 85610; 93005; 93010; 94762; 96374; 96375; 99285-25; A9270; G0378; J7030

== ENCOUNTER → 2024-10-18 | Outpatient (CLI) | payer OTHER ==
[~2024-10-18] MED LIST changes: +CYCL10 PO; +METO25 PO; +TOCO1000 PO; +Vitamin and Mi1 EACH PO
== END ==
LOC: LAB 15:49 → LAB SHORT 15:49
DX: N39.0 Urinary tract infection, site not specified (principal)
CPT/HCPCS: 87077; 87086; 87186

== ENCOUNTER → 2024-12-20 | Outpatient (CLI) | payer OTHER ==
[2024-12-20 18:57] LABS: Campylobacter Sp Not Detected (NOT DETECT); E. Coli O157 Not Detected (NOT DETECT); Enteroaggregative E. coli-EAEC Not Detected (NOT DETECT); Enteropathogenic E. coli-EPEC Not Detected (NOT DETECT); Enterotoxigenic E. coli-ETEC Not Detected (NOT DETECT); Salmonella Sp Not Detected (NOT DETECT); Shiga Toxin-prod E. coli-STEC Not Detected (NOT DETECT); Shigella/Enteroin E. coli-EIEC Not Detected (NOT DETECT); Vibrio Sp Not Detected (NOT DETECT)
== END ==
LOC: LAB SHORT 12:35 → LAB 12:35
PROVIDERS: Nurse Practitioner Family
DX: R19.7 Diarrhea, unspecified (principal)
CPT/HCPCS: 87324; 87507

== ENCOUNTER 2025-01-10 09:04 | Inpatient (IN) | payer OTHER ==
[~2025-01-10] VITALS: Ht 170.2 cm; Wt 112.4 kg
[2025-01-10] MEDS ORDERED: Ondansetron HCl 2 MG / ML 2ML Vial IV ONE (09:20)
[2025-01-10] MEDS ORDERED: NS 1,000 ML IV SCH (09:20)
[2025-01-10 09:24] LABS: BASOPHILS ABSOLUTE AUTO 0.04 K/mm3 (0.00-0.23); BASOPHILS PERCENT AUTO 0 % (0-2); EOSINOPHILS ABSOLUTE AUTO 0.04 K/mm3 (0.00-0.68); EOSINOPHILS PERCENT AUTO 0 % (0-6); Hematocrit 37.3 % (33.0-51.0); Hemoglobin 12.1 g/dL (11.5-16.0); IMMATURE GRAN ABSOLUTE AUTO 0.03 K/mm3 (0.00-0.10); IMMATURE GRAN PERCENT AUTO 0 % (0-1); LYMPHOCYTES ABSOLUTE AUTO 0.76 K/mm3 (0.84-5.20); LYMPHOCYTES PERCENT AUTO 7 % (21-46); MONOCYTES ABSOLUTE AUTO 0.66 K/mm3 (0.16-1.47); MONOCYTES PERCENT AUTO 6 % (4-13); Mean Corpuscular HGB Conc 32.4 g/dL (31.5-36.5); Mean Corpuscular Volume 96 fL (80-100); NEUTROPHILS ABSOLUTE AUTO 8.88 K/mm3 (1.96-9.15); NEUTROPHILS PERCENT AUTO 85 % (41-73); NRBC ABSOLUTE 0.00 K/mm3 (0.00-0.02); NRBC Auto 0.0 /100 WBC (0.0-0.2); Platelet Count 153 K/mm3 (150-400); RDW Coefficient Variation 14.7 % (11.7-14.2); RDW Standard Deviation 52.0 fL (35.1-46.3)
[2025-01-10 09:47] LABS: Alanine Aminotransfer (ALT/SGP 20.0 U/L (12-78); Albumin, Blood 3.2 g/dL (3.4-5.0); Albumin/Globulin Ratio 1.0 (0.8-1.8); Anion Gap 9.0 mmol/L (3-11); Aspartate Aminotrans (AST/SGOT 17.0 U/L (12-37); Bilirubin, Total 0.8 mg/dL (0.1-1.0); Blood Urea Nitrogen 45.0 mg/dL (8-24); CO2, Blood 25.0 mmol/L (21-32); Calcium, Blood 9.5 mg/dL (8.5-10.1); Chloride, Blood 105.0 mmol/L (98-108); Creatinine, Blood 1.97 mg/dL (0.40-1.00); Globulin, Blood 3.3 g/dL (2.2-4.0); Glucose, Blood 113.0 mg/dL (70-99); Potassium, Blood 4.3 mmol/L (3.5-5.5); Sodium, Blood 135.0 mmol/L (136-145); Total Protein, Blood 6.5 g/dL (6.4-8.2)
[2025-01-10 09:58] LABS: Prothrombin Time Results 30.9 Sec (9.7-11.5)
[2025-01-10 10:50] LABS: Source, Urine Clean Catch
[2025-01-10 10:53] LABS: Bilirubin, Urine Neg (Neg); Color, Urine Yellow (P-Yellow); Glucose Qualitative, Urine Neg (Neg); Ketones, Urine Neg (Neg); Leukocyte Esterase, Urine 3+ (Neg); Protein, Urine 1+ (Neg); Specific Gravity, Urine 1.010 (1.003-1.022); Urobilinogen, Urine NORM (Normal)
[2025-01-10 11:02] LABS: Red Blood Cells, Urine 0-2 /hpf (0-2); White Blood Cells, Urine 50-100 /hpf (0-5)
[2025-01-10] MEDS ORDERED: EUTHYROX50 MC1 PO (11:39)
[2025-01-10] MEDS ORDERED: METOPROLOL TART5010 PO (11:41)
[2025-01-10] MEDS ORDERED: JANTOVEN5 M2 PO (11:42)
[2025-01-10] MEDS ORDERED: FLU VACC TS2025(65UP)/MF59C/PF 45 MCG/0.5 ML SYRINGE IM SCH (12:55)
--- NOTE | 2025-01-10 14:50 | NUR ---
GOT REPORT FROM ED NURSE CHARLENE AT [id number].
[2025-01-10 15:15] VITALS: BP 124/95
--- NOTE | 2025-01-10 15:23 | NUR ---
BUTT- VERBAL TO DC NPO ORDER.
[2025-01-10] MEDS ORDERED: FINA5 PO (15:37)
[2025-01-10] MEDS ORDERED: WARF2.5 PO (15:45)
[2025-01-10] MEDS ORDERED: WARF5 PO (15:45)
--- NOTE | 2025-01-10 16:53 | NUR ---
SHIFT SUMMARY PATIENT IS A&OX4, PLEASANT AND COOPERATIVE WITH CARE. IS ABLE TO MAKE NEEDS KNOWN AND CALLS APPROPRIATELY. SHE HAS URINARY FREQUENCY, IS ABLE TO AMBULATE WITH SBA AND FWW TO THE BATHROOM. A STOOL SAMPLE IS STILL NEEDED. SHE IS ON ROOM AIR. HAS TELE AND RUNNING A FLUTTER AT 127BPM. SHE IS CURRENTLY IN BED TALKING WITH HER PARTNER WHO IS PRESENT AT THE BEDSIDE. BED IS LOW, ALARM IS SET. CALL LIGHT IS WITHIN REACH.
[2025-01-10] MEDS ORDERED: Ondansetron HCl 2 MG / ML 2ML Vial IV PRN (18:00)
--- NOTE | 2025-01-10 18:12 | NUR ---
patient arrived to medical floor from ed 1505
--- NOTE | 2025-01-10 18:34 | NUR ---
CALL TO DOC TO CLARIFY LOPRESSOR DOSE AND SCHEDULE. D/C 50MG BID AND CHANGING TO 100MG BID.
[2025-01-10 19:31] VITALS: BP 154/116
[2025-01-10] MEDS ORDERED: Miconazole Nitrate 2% 85 GM PWD TOP SCH (21:00)
--- NOTE | 2025-01-10 23:08 | NUR ---
L HAND IV INFILTRATED WITH ZOFRAN ADMINISTRATION; PHARMACY CONTACTED. ELEVATED HAND WITH COMPRESS. IV FLUIDS STOPPED BETWEEN 2029 AND 2300. POWERGLIDE INSERTED AT L UPPER ARM, PT TOLERATED WELL. PIV ATTEMPT AT RAC AND US-GUIDED R UPPER UNSUCCESSFUL.
[2025-01-10] MEDS ORDERED: Metoprolol Tartrate 1 MG/ML 5 ML VIAL IV ONE ×2 (23:25→23:55)
[2025-01-10 23:36] VITALS: BP 162/80
[2025-01-10 23:47] VITALS: BP 132/103
--- NOTE | 2025-01-10 23:53 | NUR ---
HOSPITALIST NOTIFIED OF PT VS AFTER IV PUSH 5 MG LOPRESSOR. BP 132/103 HR ON TELE AFIB RVR 144BPM. RR 18. TEMP 99.6F ORAL. SPO2 98% ON RA. PT HAD C/O OF INGRAM 5/10 THAT HAS BEEN PERSISTENT FOR PAST 3 WEEKS SINCE PT BECAME ILL. PT ALSO REPORTS ANXIETY AND FEELING OF IMPENDING DDOM. PT HAD NO C/O OF PALPITATIONS, SOB, CP, NAUSEA, JAW OR SHOULDER PAIN. ORDERS GIVEN FOR 1 MORE DOSE IV 5 MG LOPRESSOR, AND TYLENOL 500 MG X 1, AND TO RECHECK VS IN 15-20 MINUTES AND TO CALL ON COMING HOSPITALIST. IDEAL HR IN <110 BPM.
[2025-01-11] VITALS (13 sets, daily range): BP systolic 91–148; BP diastolic 62–120
[2025-01-11] MEDS ORDERED: Diltiazem HCl 5 MG / ML 5ML Vial IV ONE (00:35)
[2025-01-11 05:18] LABS: Hematocrit 34.2 % (33.0-51.0); Hemoglobin 11.0 g/dL (11.5-16.0); Mean Corpuscular HGB Conc 32.2 g/dL (31.5-36.5); Mean Corpuscular Volume 97 fL (80-100); NRBC ABSOLUTE 0.00 K/mm3 (0.00-0.02); NRBC Auto 0.0 /100 WBC (0.0-0.2); Platelet Count 134 K/mm3 (150-400); RDW Coefficient Variation 14.9 % (11.7-14.2); RDW Standard Deviation 53.8 fL (35.1-46.3)
[2025-01-11 05:30] LABS: Prothrombin Time Results 24.0 Sec (9.7-11.5)
[2025-01-11 05:37] LABS: Alanine Aminotransfer (ALT/SGP 19.0 U/L (12-78); Albumin, Blood 2.9 g/dL (3.4-5.0); Albumin/Globulin Ratio 0.9 (0.8-1.8); Anion Gap 9.0 mmol/L (3-11); Aspartate Aminotrans (AST/SGOT 15.0 U/L (12-37); Bilirubin, Total 0.6 mg/dL (0.1-1.0); Blood Urea Nitrogen 33.0 mg/dL (8-24); CO2, Blood 27.0 mmol/L (21-32); Calcium, Blood 9.4 mg/dL (8.5-10.1); Chloride, Blood 105.0 mmol/L (98-108); Creatinine, Blood 1.81 mg/dL (0.40-1.00); Globulin, Blood 3.3 g/dL (2.2-4.0); Glucose, Blood 113.0 mg/dL (70-99); Potassium, Blood 4.7 mmol/L (3.5-5.5); Sodium, Blood 136.0 mmol/L (136-145); Total Protein, Blood 6.2 g/dL (6.4-8.2)
--- NOTE | 2025-01-11 06:44 | NUR ---
SHIFT SUMMARY A/Ox4, AFIB RHYTHM, HR SUSTAINED 130s-150s; MD CONTACTED. MINIMAL HR CHANGE WITH IV LOPRESSOR X 2. 10 MG IV CARDIZEM EFFECTIVE; HR 110s. PT REPORTS FEELING BETTER THIS AM; REPORTED INTERMITTENT DIZZINESS AND SOB WHEN HR WAS 130s-150s. PRN TYLENOL EFFECTIVE FOR HEADACHE/ TEMP 99.5. NO BM OVERNIGHT, STILL AWAITING STOOL SAMPLE. CONTACT GI PRECAUTIONS IN PLACE. UP TO BEDSIDE COMMODE WITH 1P/FWW. SAFETY PRECAUTIONS IN PLACE.
[2025-01-11] MEDS ORDERED: Cholecalciferol 1000 Unit Tablet (=25MCG) PO SCH (09:00)
--- NOTE | 2025-01-11 11:45 | NUR ---
1040 DR. OLIVAREZ IN THE ROOM TO DISCUSS D/C WITH PATIENT AND DAUGHTER SAULO. DAUGHTER SAULO DISCUSSED CONCERNS ABOUT DISCHARGING PATIENT HOME. DAUGHTER SAULO REQUESTED ETHICS TO ROOM. 1050 THIS RN REQUESTED ETHICS TO ROOM. 1105 ETHICS IN ROOM
[2025-01-11] MEDS ORDERED: Metoprolol Tartrate 1 MG/ML 5 ML VIAL IV ONE ×2 (12:40→14:10)
--- NOTE | 2025-01-11 12:49 | NUR ---
1230 TELL MX CALLED TO REPORT PT'S HRT RATE SUSTAINING 140'S. DR MERAZ IN SEEING PT AT THIS TIME. UPDATE GIVEN. MEDICATIONS REVIEWED. NEW ORDERS PLACED. IV LOPRESSOR GIVEN PER ORDERS. TELE MX NOTIFIED PRIOR TO ADMIN. HRT RATE NOW DOWN TO 120'S-130, PER MX TECH. JUANCARLOS NICOLE UPDATED ON PT CARE.
[2025-01-11] MEDS ORDERED: CefTRIAXone Sodium 1,000 MG in NS 100 ML IV SCH (13:30)
[2025-01-11] MEDS ORDERED: NS 250 ML IV PRN (14:05)
[2025-01-11] MEDS ORDERED: FUROSEMIDE20 MG PO (14:39)
--- NOTE | 2025-01-11 14:40 | NUR ---
CALLED DR. GARDUNO AT @ 8284 TO NOTIFY OF HR 130-140 AFTER SECOND DOSE OF IV METOPROLOL. DR. GARDUNO IS TRANSFERRING PT TO [facility].
[2025-01-11] MEDS ORDERED: VERAPAMIL ER120 M1 PO (14:41)
--- NOTE | 2025-01-11 16:51 | NUR ---
ARRIVED TO UNIT AT 1550. PT A/O X 4, OBEYS COMMANDS AND ANSWERS QUESTIONS APPROPRIATELY. AFIB RVR 130-140s, DENIES CHEST PAIN, PRESSURE, TIGHTNESS, OR SOB. SATS >90% ON ROOM AIR. ORAL TEMP OF 100.4 ALL OTHER VSS. MILD ABDOMINAL DISTENTION WITH TENDERNESS UPON PALPATION. PUREWICK IN PLACE AND CONNECTED TO SUCTION. RIGHT KNEE IS RED AND HOT TO THE TOUCH. PATIENT ENDORSES WORSENING RIGHT KNEE PAIN X 3 WEEKS. MD NOTIFIED. X RAY AND ULRASOUND ORDERED. DILTIAZEM DRIP RUNNING AT 15MG/HR. PT AND SON AT BEDSIDE.
--- NOTE | 2025-01-11 21:00 | NUR ---
ASSUMPTION OF CARE ASSUMED CARE OF PT AT APPROXIMATELY 1900. PT WITH LOW GRADE FEVER AT 100.2. PROVIDER DAVID NOTIFIED. ORDER FOR PO TYLENOL ENTERED AND ADMINSITERED. WILL CONTINUE TO MONITOR. PT RESTING COMFORTABLY IN BED. CARDIZEM GTT STOPPED D/T HR 70S-90S. HR INCREASED TO 110S-120S AT TIME OF MED ADMINISTRATION. SCHEDULED METOPROLOL WAS GIVEN PER EMAR. WILL CONTINUE TO MONITOR. MAY RESUME CARDIZEM GTT IF HR REMAINS ELEVATED. PT AOX4, A LITTLE FORGETFUL. AT BEDSIDE. PT ABLE TO MAKE NEEDS KNOWN. CALL LIGHT WITHIN REACH AND PT CALLS APPROPRIATELY FOR ASSISTANCE WHEN NEEDED. NO C/O SOB. NO C/O CHEST PAIN OR PRESSURE AT THIS TIME.
[2025-01-12] VITALS: BP 111/75
[2025-01-12 03:23] LABS: BASOPHILS ABSOLUTE AUTO 0.03 K/mm3 (0.00-0.23); BASOPHILS PERCENT AUTO 0 % (0-2); EOSINOPHILS ABSOLUTE AUTO 0.11 K/mm3 (0.00-0.68); EOSINOPHILS PERCENT AUTO 1 % (0-6); Hematocrit 32.9 % (33.0-51.0); Hemoglobin 10.5 g/dL (11.5-16.0); IMMATURE GRAN ABSOLUTE AUTO 0.04 K/mm3 (0.00-0.10); IMMATURE GRAN PERCENT AUTO 0 % (0-1); LYMPHOCYTES ABSOLUTE AUTO 1.02 K/mm3 (0.84-5.20); LYMPHOCYTES PERCENT AUTO 11 % (21-46); MONOCYTES ABSOLUTE AUTO 0.92 K/mm3 (0.16-1.47); MONOCYTES PERCENT AUTO 10 % (4-13); Mean Corpuscular HGB Conc 31.9 g/dL (31.5-36.5); Mean Corpuscular Volume 99 fL (80-100); NEUTROPHILS ABSOLUTE AUTO 6.80 K/mm3 (1.96-9.15); NEUTROPHILS PERCENT AUTO 76 % (41-73); NRBC ABSOLUTE 0.00 K/mm3 (0.00-0.02); NRBC Auto 0.0 /100 WBC (0.0-0.2); Platelet Count 123 K/mm3 (150-400); RDW Coefficient Variation 15.0 % (11.7-14.2); RDW Standard Deviation 55.0 fL (35.1-46.3)
[2025-01-12 03:32] VITALS: BP 113/94
[2025-01-12 03:35] LABS: Prothrombin Time Results 17.6 Sec (9.7-11.5)
[2025-01-12 03:48] LABS: Alanine Aminotransfer (ALT/SGP 15.0 U/L (12-78); Albumin, Blood 2.8 g/dL (3.4-5.0); Albumin/Globulin Ratio 0.8 (0.8-1.8); Anion Gap 8.0 mmol/L (3-11); Aspartate Aminotrans (AST/SGOT 16.0 U/L (12-37); Bilirubin, Total 0.8 mg/dL (0.1-1.0); Blood Urea Nitrogen 29.0 mg/dL (8-24); CO2, Blood 28.0 mmol/L (21-32); Calcium, Blood 9.7 mg/dL (8.5-10.1); Chloride, Blood 105.0 mmol/L (98-108); Creatinine, Blood 1.82 mg/dL (0.40-1.00); Globulin, Blood 3.5 g/dL (2.2-4.0); Glucose, Blood 105.0 mg/dL (70-99); Magnesium, Blood 1.9 mg/dL (1.6-2.4); Potassium, Blood 4.8 mmol/L (3.5-5.5); Sodium, Blood 136.0 mmol/L (136-145); Total Protein, Blood 6.3 g/dL (6.4-8.2)
--- NOTE | 2025-01-12 05:16 | NUR ---
SHIFT SUMMARY CARDIZEM ON STAND-BY AT SHIFT CHANGE FOR HR IN 70S. HR SUSTAINED 80S-90S THROUGHOUT SHIFT. PT RESTING COMFORTABLY IN BED. PUREWICK IN PLACE SET TO CONTINUOUS SUCTION. PT WITH ADEQUATE OUTPUT. NO BM THIS SHIFT. STOOL SAMPLE STILL NEEDED. RIGHT KNEE STILL WARM AND RED. DUPLEX AND XRAY NEGATIVE FOR ACUTE FINDINGS. DISSOLVABLE SUTURES STILL PRESENT IN LEFT EYELID FROM PREVIOUS SURGERY. POWERGLIDE IN LEFT UPPER ARM. PT IS SBA WITH FWW. NO C/O CHEST PAIN OR PRESSURE. NO C/O SOB. CALL LIGHT WITHIN REACH. PT AOX4. ABLE TO MAKE ALL NEEDS KNOWN. CALLS FOR ASSISTANCE APPROPRIATELY.
[2025-01-12 07:19] VITALS: BP 120/80
[2025-01-12] MEDS ORDERED: Mag Sulfate 1 GM/D5% 100ML 100 ML IV STA (07:35)
[2025-01-12] MEDS ORDERED: Lactobacil 2-S.Thermo-Bifido 1 1 Cap PO SCH (09:00)
[2025-01-12] MEDS ORDERED: CefTRIAXone Sodium 1,000 MG in NS 100 ML IV SCH (09:00)
[2025-01-12 11:58] VITALS: BP 130/95
[2025-01-12] MEDS ORDERED: CEPH500 PO (12:06)
[2025-01-12] MEDS ORDERED: VISBIOME 112.51 EACH PO (12:06)
--- NOTE | 2025-01-12 12:34 | NUR ---
DISCHARGE SUMMARY PATIENT A/O X 4, COOPERATIVE WITH CARE AND MAKES NEEDS KNOWN. AFIB/FLUTTER IN 70-90s, DENIES CHEST PAIN OR PRESSURE. SATS MAINTAINED >94% ON ROOM AIR, DENIES SOB. REVEIWED DISCHARGE ORDERS WITH PATIENT AND AT BEDSIDE AT 1227. PATIENT TRANSFERRED FROM BED TO WHEELCHAIR WITH MINIMAL ASSISTANCE, TOLERATED WELL. PERSONAL BELONGINGS AND DISCHARGE PACKET WITH PATIENT AT TIME OF DISCHARGE. PATIENT WHEELED OUT BY STAFF AT 1231.
== END 2025-01-12 12:35 | disposition home health service (06) | DRG 394 ==
LOC: ER 09:04 → MEDS 09:05 → PCU 01-11 15:46
PROVIDERS: Pharmacist Pharmacotherapy; Physician Assistant; ADMIT Internal Medicine
DX: K52.1 Toxic gastroenteritis and colitis (principal); F05 Delirium due to known physiological condition; I48.19 Other persistent atrial fibrillation; N39.0 Urinary tract infection, site not specified; T36.95XA Adverse effect of unspecified systemic antibiotic, initial encounter; K21.9 Gastro-esophageal reflux disease without esophagitis; I25.10 Atherosclerotic heart disease of native coronary artery without angina pectoris; I10 Essential (primary) hypertension; E03.9 Hypothyroidism, unspecified; B96.4 Proteus (mirabilis) (morganii) as the cause of diseases classified elsewhere; K44.9 Diaphragmatic hernia without obstruction or gangrene; K80.20 Calculus of gallbladder without cholecystitis without obstruction; R33.9 Retention of urine, unspecified; E86.0 Dehydration; Z96.651 Presence of right artificial knee joint; Z96.643 Presence of artificial hip joint, bilateral; Z79.890 Hormone replacement therapy; Z95.1 Presence of aortocoronary bypass graft; Z79.01 Long term (current) use of anticoagulants; Z79.82 Long term (current) use of aspirin
CPT/HCPCS: 73560-RT; 74177; 80053; 81001; 83605; 83690; 83735; 84443; 85025; 85027; 85610; 87077; 87086; 87186; 93005; 93010; 93971; 96361; 96365; 96367; 96374-59; 96375; 96375-59; 96376; 97110; 97161; 97530; 99285-25; A6590; A9270; C1751; G0378; J0696; J2405; J3475; J7030; J7120; Q9967